=== PATIENT | male | born 1990 | race American Indian/Alaskan Native ===

== ENCOUNTER 2023-06-29 13:42 | Emergency (ER) | payer MEDICAID ==
[2023-06-29] MEDS ORDERED: Sodium Chloride 0.9% 10 ML Syringe FLUSH PRN (14:42)
[2023-06-29] MEDS ORDERED: Sodium Chloride 0.9% 1,000 ML IV ONE ×3 (14:45→15:56)
[2023-06-29] MEDS ORDERED: diphenhydrAMINE 50 MG/ML SDV IVPUSH ONE (14:45)
[2023-06-29] MEDS ORDERED: LORazepam 2 MG/ML SDV IVPUSH ONE (14:46)
[2023-06-29 15:05] LABS: HEMATOCRIT 48.6 % (40.0-54.0); MEAN CORPUSCULAR HEMOGLOBIN 32.4 pg (27.0-34.0); MEAN CORPUSCULAR VOLUME 92.7 fL (80-100); PLATELET COUNT,PLT 228 10^3/uL (150-450); RED BLOOD CELL COUNT 5.24 10^6/uL (4.6-6.2); WHITE BLOOD CELL COUNT,WBC 20.7 10^3/uL (5.0-10.0)
[2023-06-29 15:16] LABS: BASOPHILS PERCENT AUTO 0.1 % (0.0-1.0); EOSINOPHILS PERCENT AUTO 0.2 % (1.0-3.0); LYMPHOCYTES PERCENT AUTO 3.4 % (20.5-50.1); MONOCYTES PERCENT AUTO 5.9 % (2-8); NEUTROPHILS PERCENT AUTO 90.4 % (42.2-75.2)
[2023-06-29 15:26] LABS: A/G RATIO 0.8; ALANINE AMINOTRANSFERASE,ALT 52 U/L (16-63); ALBUMIN 3.4 g/dL (3.4-5.0); ALKALINE PHOSPHATASE 114 U/L (46-116); ANION GAP 16.4 mEq/L (7-13); ASPARTATE AMNIOTRANSFERASE,AST 25 U/L (15-37); BILIRUBIN TOTAL 0.7 mg/dL (0.2-1.0); BLOOD UREA NITROGEN,BUN 10 mg/dL (7-18); BUN/CREATININE RATIO 7.6 (No establ ref range); CALCIUM 8.5 mg/dL (8.5-10.1); CARBON DIOXIDE,CO2 22 mmol/L (21-32); CHLORIDE,CL 100 mmol/L (98-107); CREATININE 1.31 mg/dL (0.70-1.30); EST CRCL DRUG DOSING (CG) 93.18 mL/min; GLUCOSE RANDOM 144 mg/dL (70-99); POTASSIUM,K 3.4 mmol/L (3.5-5.1); PROTEIN TOTAL,TP 7.7 g/dL (6.4-8.2); SODIUM,NA 135 mmol/L (136-145)
[2023-06-29 15:30] LABS: LYMPHOCYTES PERCENT MAN 3 % (20-50); MONOCYTES PERCENT MAN 8 % (2-8); SEG NEUTROPHILS PERCENT MAN 89 % (42-75)
[2023-06-29 15:31] LABS: ESTIMATED GFR 75 mL/min (>=60); ETHANOL BLOOD MEDICAL < 3 mg/dL (0)
[2023-06-29 15:31] LABS: LACTIC ACID 3.5 mmol/L (0.4-2.0)
[2023-06-29 16:32] LABS: APPEARANCE,URINE CLEAR (CLEAR); BILIRUBIN,URINE NEGATIVE (NEGATIVE); COLOR,URINE YELLOW (YELLOW); GLUCOSE,URINE NEGATIVE (NEGATIVE); KETONES,URINE NEGATIVE (NEGATIVE); LEUKOCYTE ESTERASE,URINE NEGATIVE (NEGATIVE); NITRITE,URINE NEGATIVE (NEGATIVE); OCCULT BLOOD,URINE NEGATIVE (NEGATIVE); PROTEIN,URINE NEGATIVE (NEGATIVE); UROBILINOGEN,URINE 0.2 mg/dL (0.2-1.0)
[2023-06-29 16:34] LABS: AMPHETAMINES,URINE POSITIVE (NEGATIVE); METHAMPHETAMINES,URINE POSITIVE (NEGATIVE)
[2023-06-29 16:36] LABS: BARBITURATES,URINE NEGATIVE (NEGATIVE); BENZODIAZEPINE,URINE NEGATIVE (NEGATIVE); MDMA (ECSTASY), URINE NEGATIVE (NEGATIVE); METHADONE,URINE NEGATIVE (NEGATIVE); OPIATES,URINE NEGATIVE (NEGATIVE); OXYCODONE,URINE NEGATIVE (NEGATIVE); PHENCYCLIDINE,URINE NEGATIVE (NEGATIVE); TCA,URINE NEGATIVE (NEGATIVE)
== END 2023-06-29 18:50 | disposition home or self-care (01) ==
LOC: DL.ED 13:42
DX: L03.116 Cellulitis of left lower limb (principal); L03.114 Cellulitis of left upper limb; Z87.891 Personal history of nicotine dependence
CPT/HCPCS: 36415; 80053; 80305-QW; 80307; 81003; 83605; 84145; 85025; 87040; 96361; 96365; 96366; 96375; 99283-25; 99284; J1200; J2060; J3370; J3490; J7030; J7040

== ENCOUNTER 2023-07-01 07:29 | Inpatient (IN) | payer MEDICAID ==
[2023-07-01] MEDS ORDERED: Sodium Chloride 0.9% 10 ML Syringe FLUSH PRN (07:42)
[2023-07-01] MEDS ORDERED: Sodium Chloride 0.9% 1,000 ML IV ONE (07:43)
[2023-07-01] MEDS ORDERED: diphenhydrAMINE 50 MG/ML SDV IVPUSH ONE (07:43)
[2023-07-01] MEDS ORDERED: Piperacillin/Tazobactam 4.5 GM in Sodium Chloride 0.9% 100 ML IV ONE (07:44)
[2023-07-01] MEDS ORDERED: Clindamycin in 0.9 % Sod Chlor 900 MG in Premix Bag 1 BAG IV ONE ×2 (07:47)
[2023-07-01 07:54] LABS: EOSINOPHILS PERCENT AUTO 0.3 % (1.0-3.0); HEMATOCRIT 45.8 % (40.0-54.0); HEMOGLOBIN 16.2 g/dL (14.0-18.0); LYMPHOCYTES PERCENT AUTO 9.1 % (20.5-50.1); MEAN CORPUSCULAR HEMOGLOBIN 32.3 pg (27.0-34.0); MEAN CORPUSCULAR HGB CONC 35.4 g/dL (33.0-35.0); MEAN CORPUSCULAR VOLUME 91.4 fL (80-100); MONOCYTES PERCENT AUTO 8.2 % (2-8); NEUTROPHILS PERCENT AUTO 82.4 % (42.2-75.2); PLATELET COUNT,PLT 207 10^3/uL (150-450); RED BLOOD CELL COUNT 5.01 10^6/uL (4.6-6.2); WHITE BLOOD CELL COUNT,WBC 20.1 10^3/uL (5.0-10.0)
[2023-07-01] MEDS ORDERED: Iopamidol 612 MG/ML 100 ML Bottle IVPUSH ONE (07:55)
[2023-07-01] MEDS ORDERED: Morphine 2 MG/ML SYRINGE IVPUSH ONE (07:56)
[2023-07-01] MEDS ORDERED: Iopamidol 755 Mg/ML 100 ML Bottle IVPUSH ONE (08:10)
[2023-07-01 08:14] LABS: ANION GAP 15.6 mEq/L (7-13); BUN/CREATININE RATIO 8.3 (No establ ref range); C-REACTIVE PROTEIN 16.01 ng/dL (<=0.30); CALCIUM 8.5 mg/dL (8.5-10.1); CREATININE 1.09 mg/dL (0.70-1.30); EST CRCL DRUG DOSING (CG) 111.99 mL/min; POTASSIUM,K 3.6 mmol/L (3.5-5.1); PROTEIN TOTAL,TP 7.7 g/dL (6.4-8.2)
[2023-07-01 08:15] LABS: A/G RATIO 0.64
[2023-07-01 08:20] LABS: LACTIC ACID 0.7 mmol/L (0.4-2.0)
[2023-07-01] MEDS ORDERED: Ondansetron 4 MG Tab.DIS PO PRN (12:55)
[2023-07-01] MEDS: Piperacillin/Tazobactam 4.5 GM in Sodium Chloride 0.9% 100 ML IV SCH ×3 (14:05→22:48)
[2023-07-01] MEDS: Acetaminophen 325 MG Tab PO PRN (17:43)
[2023-07-01] MEDS ORDERED: VANCOmycin 1.5 GM/300 ML 1.5 GM in Premix Bag 1 BAG IV SCH (20:00)
[2023-07-01] MEDS: oxyCODONE 5 MG Tab PO PRN (22:43)
[2023-07-02] MEDS: Piperacillin/Tazobactam 4.5 GM in Sodium Chloride 0.9% 100 ML IV SCH ×4 (00:13→18:20)
[2023-07-02 06:06] LABS: BASOPHILS PERCENT AUTO 0.3 % (0.0-1.0); EOSINOPHILS PERCENT AUTO 1.9 % (1.0-3.0); HEMATOCRIT 40.8 % (40.0-54.0); HEMOGLOBIN 14.3 g/dL (14.0-18.0); LYMPHOCYTES PERCENT AUTO 10.4 % (20.5-50.1); MEAN CORPUSCULAR HEMOGLOBIN 32.4 pg (27.0-34.0); MEAN CORPUSCULAR VOLUME 92.3 fL (80-100); NEUTROPHILS PERCENT AUTO 77.4 % (42.2-75.2); PLATELET COUNT,PLT 200 10^3/uL (150-450); RED BLOOD CELL COUNT 4.42 10^6/uL (4.6-6.2)
[2023-07-02 06:19] LABS: ANION GAP 13.8 mEq/L (7-13); CALCIUM 8.4 mg/dL (8.5-10.1); CREATININE 1.04 mg/dL (0.70-1.30); EST CRCL DRUG DOSING (CG) 117.37 mL/min; POTASSIUM,K 3.8 mmol/L (3.5-5.1)
[2023-07-02] MEDS: Enoxaparin 40 MG/0.4 ML Syringe SUBCUT SCH (08:37)
[2023-07-02] MEDS: oxyCODONE 5 MG Tab PO PRN (20:37)
[2023-07-02] MEDS: Acetaminophen 325 MG Tab PO PRN (20:38)
[2023-07-02] MEDS ORDERED: HYDROmorphone 0.5 MG/0.5 ML Syringe IVPUSH ONE (22:40)
[2023-07-03] MEDS: Piperacillin/Tazobactam 4.5 GM in Sodium Chloride 0.9% 100 ML IV SCH ×4 (00:40→18:26)
[2023-07-03 05:50] LABS: BASOPHILS PERCENT AUTO 0.5 % (0.0-1.0); EOSINOPHILS PERCENT AUTO 3.8 % (1.0-3.0); HEMATOCRIT 42.6 % (40.0-54.0); HEMOGLOBIN 14.8 g/dL (14.0-18.0); LYMPHOCYTES PERCENT AUTO 17.1 % (20.5-50.1); MEAN CORPUSCULAR HEMOGLOBIN 32.2 pg (27.0-34.0); MEAN CORPUSCULAR HGB CONC 34.7 g/dL (33.0-35.0); MEAN CORPUSCULAR VOLUME 92.8 fL (80-100); MONOCYTES PERCENT AUTO 12.5 % (2-8); NEUTROPHILS PERCENT AUTO 66.1 % (42.2-75.2); PLATELET COUNT,PLT 248 10^3/uL (150-450); RED BLOOD CELL COUNT 4.59 10^6/uL (4.6-6.2); WHITE BLOOD CELL COUNT,WBC 9.4 10^3/uL (5.0-10.0)
[2023-07-03] MEDS: Enoxaparin 40 MG/0.4 ML Syringe SUBCUT SCH (08:53)
[2023-07-03] MEDS: Acetaminophen 325 MG Tab PO PRN (23:54)
[2023-07-03] MEDS: oxyCODONE 5 MG Tab PO PRN (23:54)
[2023-07-04] MEDS: Piperacillin/Tazobactam 4.5 GM in Sodium Chloride 0.9% 100 ML IV SCH ×5 (01:42→23:12)
[2023-07-04 06:20] LABS: HEMATOCRIT 44.6 % (40.0-54.0); HEMOGLOBIN 15.4 g/dL (14.0-18.0); MEAN CORPUSCULAR HEMOGLOBIN 32.1 pg (27.0-34.0); MEAN CORPUSCULAR HGB CONC 34.5 g/dL (33.0-35.0); MEAN CORPUSCULAR VOLUME 92.9 fL (80-100); PLATELET COUNT,PLT 295 10^3/uL (150-450); WHITE BLOOD CELL COUNT,WBC 7.8 10^3/uL (5.0-10.0)
[2023-07-04 06:23] LABS: BASOPHILS PERCENT AUTO 0.4 % (0.0-1.0); EOSINOPHILS PERCENT AUTO 4.8 % (1.0-3.0); LYMPHOCYTES PERCENT AUTO 22.2 % (20.5-50.1); MONOCYTES PERCENT AUTO 11.5 % (2-8); NEUTROPHILS PERCENT AUTO 61.1 % (42.2-75.2)
[2023-07-04 07:02] LABS: ANION GAP 16.9 mEq/L (7-13); CALCIUM 8.8 mg/dL (8.5-10.1); CREATININE 1.05 mg/dL (0.70-1.30); EST CRCL DRUG DOSING (CG) 116.26 mL/min; POTASSIUM,K 3.9 mmol/L (3.5-5.1)
[2023-07-04 07:23] LABS: BAND PERCENT MAN 6 %; EOSINOPHILS PERCENT MAN 4 % (1-3); LYMPHOCYTES PERCENT MAN 27 % (20-50); MONOCYTES PERCENT MAN 7 % (2-8); SEG NEUTROPHILS PERCENT MAN 56 % (42-75)
[2023-07-04] MEDS: Enoxaparin 40 MG/0.4 ML Syringe SUBCUT SCH (08:26)
[2023-07-04] MEDS: Saccharomyces Boulardii (Probiotic) 250 MG Cap PO SCH ×2 (11:57→16:06)
[2023-07-04] MEDS: oxyCODONE 5 MG Tab PO PRN (22:42)
[2023-07-04] MEDS: Acetaminophen 325 MG Tab PO PRN (22:45)
[2023-07-05] MEDS: Piperacillin/Tazobactam 4.5 GM in Sodium Chloride 0.9% 100 ML IV SCH (05:31)
[2023-07-05] MEDS: Enoxaparin 40 MG/0.4 ML Syringe SUBCUT SCH (08:24)
[2023-07-05] MEDS: Saccharomyces Boulardii (Probiotic) 250 MG Cap PO SCH (08:25)
== END 2023-07-05 11:25 | disposition home or self-care (01) | DRG 603 ==
LOC: DL.ED 07:29 → DL.MS 09:49 → UNDOADMIN 09:52 → UNDODISIN 07-05 11:25
PROVIDERS: ADMIT Hospitalist; ATTEND Hospitalist
DX: L03.114 Cellulitis of left upper limb (principal); L03.116 Cellulitis of left lower limb; L02.416 Cutaneous abscess of left lower limb; L02.414 Cutaneous abscess of left upper limb; F17.210 Nicotine dependence, cigarettes, uncomplicated; E66.9 Obesity, unspecified; F12.90 Cannabis use, unspecified, uncomplicated; F15.10 Other stimulant abuse, uncomplicated; Z86.14 Personal history of Methicillin resistant Staphylococcus aureus infection; Z79.899 Other long term (current) drug therapy; Z68.29 Body mass index [BMI] 29.0-29.9, adult
CPT/HCPCS: 36415; 73201; 80048; 80053; 80202; 83605; 84145; 85025; 86140; 87040; 87070; 87077; 87186; 96365; 96367; 96368; 96375; 99284-25; 99285; A9270-GY; J1170; J1200; J1650; J2270; J2543; J3370; J3490; J7030; J7040; J7050; Q9967